=== PATIENT | female | born 1985 | race Caucasian/White ===

== ENCOUNTER 2020-05-08 12:45 | Observation (INO) | payer OTHER ==
[~2020-05-08] VITALS: Ht 172.7 cm; Wt 120.2 kg
== END 2020-05-08 13:00 | disposition home or self-care (01) ==
LOC: 4S 12:45
PROVIDERS: ADMIT Obstetrics & Gynecology; ATTEND Obstetrics & Gynecology
DX: Z03.818 Encounter for observation for suspected exposure to other biological agents ruled out (principal); O26.893 Other specified pregnancy related conditions, third trimester; Z3A.39 39 weeks gestation of pregnancy
CPT/HCPCS: 87635; G0378

== ENCOUNTER 2020-05-10 11:45 | Inpatient (IN) | payer OTHER ==
[~2020-05-10] VITALS: Ht 169 cm; Wt 120.2 kg
[2020-05-10] MEDS ORDERED: RINGERS SOLUTION,LACTATED 1,000 ML IV PRN (12:27)
[2020-05-10] MEDS ORDERED: METOCLOPRAMIDE HCL 5 MG/ML 2 ML VIAL IVP PRN (12:30)
[2020-05-10] MEDS ORDERED: CITRIC ACID/SODIUM CITRATE 30 ML SOLUTION UDCUP PO PRN (12:30)
[2020-05-10 12:35] VITALS: BP 126/68
[2020-05-10] MEDS ORDERED: OXYTOCIN 30 UNITS/LACT RINGERS 500 ML IV ONE (12:37)
[2020-05-10] MEDS ORDERED: LIDOCAINE/PF 1% 30 ML VIAL INJ PRN (12:45)
[2020-05-10] MEDS ORDERED: METHYLERGONOVINE MALEATE 0.2 MG/ML VIAL IM PRN (12:45)
[2020-05-10 13:06] LABS: BASOPHILS % (AUTO) 1.1 % (0.0-2.0); EOSINOPHILS % (AUTO) 0.3 % (1.0-6.0); HEMATOCRIT 34.7 % (36-46); HEMOGLOBIN 11.7 g/dL (12.0-16.0); LYMPHOCYTES # (AUTO) 1.6 K/uL (1.0-4.8); LYMPHOCYTES % (AUTO) 12.4 % (22.0-44.0); MEAN CORPUSCULAR HEMOGLOBIN 27.3 pg (26.0-34.0); MEAN CORPUSCULAR HGB CONC 33.7 G/dL (31.0-37.0); MEAN CORPUSCULAR VOLUME 81 fL (80-100); MONOCYTES # (AUTO) 0.7 K/uL (0.1-1.0); MONOCYTES % (AUTO) 5.3 % (2.0-9.0); NEUTROPHILS # (AUTO) 10.3 K/uL (1.8-7.7); NEUTROPHILS % (AUTO) 80.9 % (40.0-70.0); PLATELET COUNT (AUTO)-OB 309 K/uL (150-450); RED BLOOD CELL COUNT(AUTO) 4.29 MIL/uL (4.00-5.20); RED CELL DISTRIBUTION WIDTH 16.7 % (11.5-14.5)
[2020-05-10] MEDS ORDERED: DINOPROSTONE 10 MG VAGINAL SUPPOSITORY VG ONE (13:15)
[2020-05-10] MEDS: RINGERS SOLUTION,LACTATED 1,000 ML IV SCH ×3 (13:37→23:02)
[2020-05-10] MEDS ORDERED: PREN-217 PO (18:01)
[2020-05-10] MEDS ORDERED: METF-960 PO (18:01)
[2020-05-10 19:54] LABS: GLUCOMETER DEV NAME(LOC) 4S.; GLUCOSE,POINT OF CARE 79 MG/DL (70-110)
[2020-05-10] MEDS ORDERED: OXYGEN THERAPY IH SCH (20:00)
[2020-05-11] MEDS ORDERED: -PHARMACY NOTE- MISC ONE (01:15)
[2020-05-11] MEDS: FentaNYL CITRATE-PF 100 MCG/2 ML VIAL IVP PRN ×4 (02:39→04:31)
[2020-05-11] MEDS ORDERED: MISOPROSTOL 50 MCG TABLET PO SCH (04:00)
[2020-05-11] MEDS ORDERED: BUTORPHANOL TARTRATE 2 MG/ML VIAL IVP ONE (05:30)
[2020-05-11] MEDS: RINGERS SOLUTION,LACTATED 1,000 ML IV SCH ×4 (06:38→20:40)
[2020-05-11] MEDS ORDERED: AMPICILLIN SODIUM 2 GM/NS 100 ML IV ONE (07:45)
[2020-05-11] MEDS ORDERED: ROPIVACAINE HCL/PF 0.2% 100 ML ED ONE (08:06)
[2020-05-11] MEDS ORDERED: ONDANSETRON HCL 4 MG/2 ML VIAL IVP PRN ×3 (08:30→16:00)
[2020-05-11] MEDS ORDERED: NALBUPHINE HCL 10 MG/ML VIAL IVP PRN (08:30)
[2020-05-11] MEDS ORDERED: DiphenhydrAMINE HCL 50 MG/ML VIAL IVP PRN ×3 (08:30→16:00)
[2020-05-11] MEDS ORDERED: ROPIVACAINE HCL/PF 0.2% 100 ML ED PRN (08:30)
[2020-05-11 10:37] LABS: GLUCOMETER DEV NAME(LOC) 4S.; GLUCOSE,POINT OF CARE 105 MG/DL (70-110)
[2020-05-11] MEDS ORDERED: OXYTOCIN 30 UNITS/LACT RINGERS 500 ML IV ONE (11:19)
[2020-05-11] MEDS ORDERED: AMPICILLIN SODIUM 1 GM/NS 50 ML IV SCH (11:45)
[2020-05-11] MEDS ORDERED: OXYTOCIN 30 UNITS/LACT RINGERS 500 ML IV PRN (12:50)
[2020-05-11] MEDS ORDERED: MORPHINE SULFATE/PF 0.5 MG/ML 10 ML AMP ONE (14:59)
[2020-05-11] MEDS ORDERED: FentaNYL CITRATE-PF 100 MCG/2 ML VIAL ONE (14:59)
[2020-05-11] MEDS ORDERED: LIDOCAINE/PF 2% 5 ML VIAL ONE (15:00)
[2020-05-11] MEDS ORDERED: ACETAMINOPHEN 1000 MG/ISO-OSM 100 ML IV ONE (15:00)
[2020-05-11] MEDS ORDERED: METHYLERGONOVINE MALEATE 0.2 MG/ML VIAL ONE (15:36)
[2020-05-11] MEDS ORDERED: CARBOPROST TROMETHAMINE 250 MCG/ML AMP IM ONE (15:37)
[2020-05-11] MEDS ORDERED: TRANEXAMIC ACID 1,000 MG/10 ML VIAL ONE (15:39)
[2020-05-11] MEDS ORDERED: MORPHINE SULFATE 2 MG/ML SYRINGE IVP PRN ×2 (15:45)
[2020-05-11] MEDS ORDERED: FentaNYL CITRATE-PF 100 MCG/2 ML VIAL IVP PRN ×4 (15:45→16:00)
[2020-05-11] MEDS ORDERED: MEPERIDINE-PF 25 MG/ML VIAL IVP PRN (15:45)
[2020-05-11] MEDS ORDERED: MORPHINE SULFATE 10 MG/ML SYRINGE IVP PRN ×2 (15:45→16:00)
[2020-05-11] MEDS ORDERED: TRANEXAMIC ACID 1,000 MG in DEXTROSE 5%-WATER 50 ML IV ONE (15:45)
[2020-05-11] MEDS ORDERED: DEXAMETHASONE SOD PHOS 4 MG/ML VIAL IVP PRN (15:45)
[2020-05-11] MEDS ORDERED: GUM MASTIC/STORAX/MSAL/ALCOHOL LIQUID 0.67 ML VIAL TP ONE (15:47)
[2020-05-11] MEDS ORDERED: NALOXONE HCL 0.4 MG/ML VIAL IVP PRN (16:00)
[2020-05-11] MEDS ORDERED: OxyCODONE HCL/ACETAMINOPHEN 5-325 MG TABLET PO PRN (19:00)
[2020-05-11] MEDS ORDERED: LANOLIN 7 GM OINTMENT TP PRN (19:00)
[2020-05-11] MEDS ORDERED: OXYGEN THERAPY IH SCH ×3 (20:00)
[2020-05-11] MEDS: ACETAMINOPHEN 1000 MG/ISO-OSM 100 ML IV SCH (23:53)
[2020-05-12] MEDS ORDERED: OXYTOCIN 10 UNITS/ML VIAL IM ONE (01:13)
[2020-05-12] MEDS ORDERED: ONDANSETRON HCL 4 MG/2 ML VIAL IVP ONE (01:13)
[2020-05-12] MEDS ORDERED: 0.9% SODIUM CHLORIDE 10 ML VIAL IVP ONE (01:13)
[2020-05-12] MEDS ORDERED: LIDOCAINE/PF 2% 5 ML VIAL IM ONE (01:13)
[2020-05-12 06:26] LABS: BASOPHILS % (AUTO) 0.3 % (0.0-2.0); EOSINOPHILS % (AUTO) 0.2 % (1.0-6.0); HEMATOCRIT 30.7 % (36-46); LYMPHOCYTES # (AUTO) 1.6 K/uL (1.0-4.8); LYMPHOCYTES % (AUTO) 11.1 % (22.0-44.0); MEAN CORPUSCULAR HEMOGLOBIN 26.5 pg (26.0-34.0); MEAN CORPUSCULAR HGB CONC 32.7 G/dL (31.0-37.0); MEAN CORPUSCULAR VOLUME 81 fL (80-100); MONOCYTES # (AUTO) 0.8 K/uL (0.1-1.0); MONOCYTES % (AUTO) 5.7 % (2.0-9.0); NEUTROPHILS # (AUTO) 11.7 K/uL (1.8-7.7); NEUTROPHILS % (AUTO) 82.7 % (40.0-70.0); PLATELET COUNT (AUTO)-OB 261 K/uL (150-450); RED BLOOD CELL COUNT(AUTO) 3.78 MIL/uL (4.00-5.20)
[2020-05-12] MEDS: ACETAMINOPHEN 1000 MG/ISO-OSM 100 ML IV SCH (06:27)
[2020-05-12] MEDS: RINGERS SOLUTION,LACTATED 1,000 ML IV SCH (06:57)
[2020-05-12] MEDS: MAGNESIUM HYDROXIDE SUSPENSION 30 ML UDCUP PO SCH ×2 (10:52→19:44)
[2020-05-12] MEDS: OxyCODONE HCL/ACETAMINOPHEN 5-325 MG TABLET PO PRN ×2 (15:44→21:58)
[2020-05-12] MEDS: IBUPROFEN 800 MG TABLET PO PRN (19:44)
[2020-05-13] MEDS: IBUPROFEN 800 MG TABLET PO PRN ×2 (04:40→14:05)
[2020-05-13] MEDS: MAGNESIUM HYDROXIDE SUSPENSION 30 ML UDCUP PO SCH (08:06)
[2020-05-13] MEDS: OxyCODONE HCL/ACETAMINOPHEN 5-325 MG TABLET PO PRN (08:06)
[2020-05-13] MEDS ORDERED: IBUP-2071 PO (10:12)
[2020-05-13] MEDS ORDERED: PERCT PO (10:50)
== END 2020-05-13 15:40 | disposition home or self-care (01) | DRG 788 ==
LOC: OBSVTOIN 11:45 → 4S 11:45
PROVIDERS: ADMIT Obstetrics & Gynecology; ATTEND Obstetrics & Gynecology
PROC: 10D00Z1 Extraction of Products of Conception, Low, Open Approach (ICD-10-PCS; principal; 2020-05-11)
DX: O69.81X0 Labor and delivery complicated by cord around neck, without compression, not applicable or unspecified (principal); O33.9 Maternal care for disproportion, unspecified; Z3A.40 40 weeks gestation of pregnancy; O34.13 Maternal care for benign tumor of corpus uteri, third trimester; Z37.0 Single live birth; D25.9 Leiomyoma of uterus, unspecified
CPT/HCPCS: 86850; 86900; 86901; 86923; 88305; J0131; J0290; J0595; J0690; J2210; J2274; J2405; J2590; J2765; J2795; J3010; J3490; J7120